=== PATIENT | male | born 1990 | race Caucasian/White ===

== ENCOUNTER 2018-03-10 08:23 | Emergency (ER) | payer SELFPAY ==
[2018-03-10 08:41] VITALS: BP 159/88
--- NOTE | 2018-03-10 09:15 | UC ---
General HPI - HPI Summary HPI Summary: small bump under left axilla x 1 day had arm pain yesterday , noted a small bump as he was feeling under his left axilla, mild tenderness, no redness, no fever, no chills - History of Current Complaint Chief Complaint: UCSkin Stated Complaint: LEFT ARM INJ Time Seen by Provider: 03/10/18 08:39 Hx Obtained From: Patient Onset/Duration: Sudden Onset, Lasting Days - 1, Still Present Timing: Constant Onset Severity: Mild Current Severity: Mild Pain Intensity: 2 Pain Location at: left axilla Pain Radiates to: no radiation Character: achy Aggravating: touch Alleviating: rest - Allergy/Home Medications Allergies/Adverse Reactions: Allergies Allergy/AdvReac Type Severity Reaction Status Date / Time Penicillins Allergy Hives Verified 03/10/18 08:36 Home Medications: Home Medications NK [No Home Medications Reported] 03/10/18 [History Confirmed 03/10/18] PMH/Surg Hx/FS Hx/Imm Hx Previously Healthy: Yes - Surgical History Surgical History: None - Family History Known Family History: Negative: Diabetes - Social History Alcohol Use: None Substance Use Type: None Smoking Status (MU): Never Smoked Tobacco Review of Systems Constitutional: Negative Skin: Negative Eyes: Negative ENT: Negative Respiratory: Negative Cardiovascular: Negative Gastrointestinal: Negative Is Patient Immunocompromised?: No All Other Systems Reviewed And Are Negative: Yes Physical Exam Triage Information Reviewed: Yes Appearance: Well-Appearing, No Pain Distress, Well-Nourished Vital Signs: Initial Vital Signs Temp 98.5 F 03/10/18 08:37 Pulse 75 03/10/18 08:37 Resp 18 03/10/18 08:37 BP 159/88 03/10/18 08:37 Pulse Ox 100 03/10/18 08:37 Vital Signs Reviewed: Yes Eye Exam: Normal Eyes: Positive: Conjunctiva Clear ENT: Positive: Normal ENT inspection, Hearing grossly normal, Pharynx normal Neck: Positive: Supple, Nontender, No Lymphadenopathy. Negative: Enlarged Nodes @ Respiratory: Positive: Chest non-tender, Lungs clear, Normal breath sounds, No respiratory distress Cardiovascular: Positive: RRR, No Murmur, Pulses Normal Abdominal Exam: Normal Abdomen Description: Positive: Nontender Musculoskeletal Exam: Normal Skin Exam: Normal Skin: Positive: Other - very small nodular lesion left axilla, mild tenderness, Course/Dx - Differential Dx - Multi-Symptom Provider Diagnoses: left axillary lymphadenopathy Discharge - Sign-Out/Discharge Documenting (check all that apply): Patient Departure All imaging exams completed and their final reports reviewed: No Studies - Discharge Plan Condition: Stable Disposition: HOME Patient Education Materials: Lymphadenopathy (ED) Referrals: Jayna Salvador MD [Primary Care Provider] - 2 Weeks Additional Instructions: small lymphnode left axilla , cont. to monitor, may return back to the clinic or follow up with your pcp in one month if not improving - Billing Disposition and Condition Condition: STABLE Disposition: Home
== END 2018-03-10 08:57 | disposition home or self-care (01) ==
LOC: UCCORT 08:23
DX: R59.1 Generalized enlarged lymph nodes (principal); Z88.0 Allergy status to penicillin
CPT/HCPCS: 99201; G0463

== ENCOUNTER 2018-11-02 09:02 | Emergency (ER) | payer OTHER ==
[2018-11-02 09:28] VITALS: BP 142/81
--- NOTE | 2018-11-02 09:43 | UC ---
Neck Pain HPI - HPI Summary HPI Summary: Pt presents with c/o intermittent neck, bilateral hand pain, numbness that radiates through forearms to neck. Pt states it worsens at the end of day after working and moving heavy objects throughout the day in a "hunched over position". Pt also c/o neck pain and stiffness at end of work day. - History of Current Complaint Chief Complaint: UCBackPain Stated Complaint: WC-BI LAT HAND PAIN Time Seen by Provider: 11/02/18 09:31 Hx Obtained From: Patient Mechanism Of Injury: No Known Trauma Timing: Intermittent Episodes Onset/Duration: Lasting Hours Severity: Moderate Pain Intensity: 4 Character: Dull, Aching, Burning, Throbbing Aggravating Factors: Position, Movement Alleviating Factors: Nothing - rest Associated Signs & Symptoms: Positive: Weakness, Paresthesia - Risk Factors Meningitis Risk Factors: Negative - Allergies/Home Medications Allergies/Adverse Reactions: Allergies Allergy/AdvReac Type Severity Reaction Status Date / Time Penicillins Allergy Hives Verified 11/02/18 09:28 PMH/Surg Hx/FS Hx/Imm Hx Previously Healthy: Yes - Surgical History Surgical History: None - Family History Known Family History: Negative: Diabetes - Social History Occupation: Employed Full-time Lives: With Family Alcohol Use: None Substance Use Type: None Smoking Status (MU): Never Smoked Tobacco Have You Smoked in the Last Year: No Review of Systems All Other Systems Reviewed And Are Negative: Yes Constitutional: Positive: Negative Skin: Positive: Negative Eyes: Positive: Negative ENT: Positive: Negative Respiratory: Positive: Negative Cardiovascular: Positive: Negative Gastrointestinal: Positive: Negative Genitourinary: Positive: Negative Motor: Positive: Weakness - bilateral arms/forearms Neurovascular: Positive: Negative Musculoskeletal: Positive: Myalgia Neurological: Positive: Negative Psychological: Positive: Negative Is Patient Immunocompromised?: No Physical Exam Triage Information Reviewed: Yes Appearance: Well-Appearing Vital Signs: Initial Vital Signs Temp 98.3 F 11/02/18 09:20 Pulse 68 11/02/18 09:20 Resp 16 11/02/18 09:20 BP 142/81 11/02/18 09:20 Pulse Ox 100 11/02/18 09:20 Vital Signs Reviewed: Yes Eye Exam: Normal ENT Exam: Normal Dental Exam: Normal Neck exam: Normal Neck: Positive: Supple, Nontender Respiratory Exam: Normal Respiratory: Positive: No respiratory distress Musculoskeletal Exam: Normal Musculoskeletal: Positive: Strength Intact, ROM Intact Neurological Exam: Normal Psychological Exam: Normal Skin Exam: Normal Neck Pain Course/Dx - Differential Dx/Diagnosis Differential Dx/HQI/PQRI: Sprain, Strain, Torticollis Provider Diagnosis: Neuritis of upper extremity, Neck pain without injury Discharge - Sign-Out/Discharge Documenting (check all that apply): Patient Departure All imaging exams completed and their final reports reviewed: No Studies - Discharge Plan Condition: Stable Disposition: HOME Patient Education Materials: Arm Pain (ED), Neck Pain (ED) Forms: *Work Release Referrals: Errol Oh MD [Medical Doctor] - If Needed [place] MD [Medical Doctor] - If Needed Jayna Salvador MD [Primary Care Provider] - As Soon As Possible Ama Barros MD [Medical Doctor] - If Needed Krystal Carmona MD [Medical Doctor] - If Needed Additional Instructions: Please follow up with your PCP for further evaluation and referral. We have also provided referrals to several specialists and physical therapy. - Billing Disposition and Condition Condition: STABLE Disposition: Home
== END 2018-11-02 10:14 | disposition home or self-care (01) ==
LOC: UCCORT 09:02
DX: M79.2 Neuralgia and neuritis, unspecified (principal); M54.2 Cervicalgia; M79.641 Pain in right hand; M79.642 Pain in left hand; Z88.0 Allergy status to penicillin
CPT/HCPCS: 99211; G0463